=== PATIENT | male | born 1980 | race Asian ===

== ENCOUNTER → 2019-10-02 | Outpatient (CLI) | payer SELFPAY ==
[2019-10-02 13:28] LABS: POTASSIUM 4.1 mmol/L (3.5-5.1)
[2019-10-02 13:29] LABS: CALCIUM 9.5 mg/dL (8.3-10.5)
== END ==
LOC: LAB 13:09
PROVIDERS: Nurse Practitioner Family
DX: M10.9 Gout, unspecified (principal)